=== PATIENT | female | born 1960 | race Caucasian/White ===

== ENCOUNTER 2016-08-13 07:42 | Day surgery (SDC) | payer BC ==
[~2016-08-13 07:42] MED LIST: PROPOFOL INJ 200 MG/20 ML VIAL IV ONE
[2016-08-13] MEDS ORDERED: PROPOFOL INJ 200 MG/20 ML VIAL IV ONE (08:53)
[2016-08-13 10:10] VITALS: BP 104/70
--- NOTE | 2016-08-13 13:28 | Operative Report ---
Operative Report DATE OF SURGERY: 08/13/16 Operative Report: The risks, benefits and alternatives of the procedure including risks of bleeding, perforation requiring surgery are explained to the patient detail and informed consent is obtained. Patient is taken back to the endoscopy suite. Patient is placed in a left lateral decubital position. Timeout is called. Propofol medications is administered. A rectal examination was done which did not reveal any masses, tears or fissures. An Olympus videoscope was inserted into the patient's rectum. Keeping the lumen in site at all times the scope was then gradually advanced all the way to the cecum. The cecum as identified by the usual anatomical landmarks of the ileocecal valve as well as the appendiceal office. Photodocumentation is obtained. The scope is then sequentially pulled back via the various segments of the colon including the ascending colon, hepatic flexure, transverse colon, splenic flexure, descending colon and finally into the rectosigmoid portions of the colon. Prep is good. Retroflexion maneuvers performed. PREOPERATIVE DIAGNOSIS: Colorectal cancer screening. POSTOPERATIVE DIAGNOSIS: Colon polyp times through this removed via snare polypectomy. Occasional diverticulosis. Internal hemorrhoids. 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 OPERATION: Colonoscopy with snare polypectomy SURGEON: ANURAG CHOI ANESTHESIA: LMAC TISSUE REMOVED OR ALTERED: Both colon polyps and retrieved. COMPLICATIONS: None. ESTIMATED BLOOD LOSS: none. INTRAOPERATIVE FINDINGS: As noted above PROCEDURE: Patient tolerated the procedure well. No immediate postprocedure complications are noted. Patient is discharged in good condition. Date of discharge 08/13/2016. Discharge diet: Regular. Discharge activity: Regular. Patient will need a surveillance colonoscopy in 3-5 years depending on the pathology of the polyp. She does have a 2-3 week follow-up to discuss findings. She is instructed to go the emergency room or call the office should there be any further problems or questions.
== END 2016-08-13 09:27 | disposition home or self-care (01) ==
LOC: END 07:42
PROVIDERS: ATTEND Internal Medicine Gastroenterology
PROC: 0DBP8ZX Excision of Rectum, Via Natural or Artificial Opening Endoscopic, Diagnostic (ICD-10-PCS; principal; 2016-08-13 08:30)
DX: Z12.11 Encounter for screening for malignant neoplasm of colon (principal); K57.30 Diverticulosis of large intestine without perforation or abscess without bleeding; K64.8 Other hemorrhoids; K62.1 Rectal polyp
CPT/HCPCS: 45385; 88305 ×2; J2704; 44388; 45388; 810

== ENCOUNTER 2019-07-28 10:42 | Emergency (ER) | payer SELFPAY ==
--- NOTE | 2019-07-28 10:51 | ER Document Report ---
ED Medical Screen (RME) - General Chief Complaint: Abscess Stated Complaint: ABSCESS Time Seen by Provider: 07/28/19 10:50 Mode of Arrival: Ambulatory Information source: Patient Notes: 59-year-old female presents emergency department with a perineal abscess. She was sent over from Dr. Parker's office. She reports it started Saturday. Dr. Parker started her on clindamycin today but she has not taken a dose. I have greeted and performed a rapid initial assessment of this patient. A comprehensive ED assessment and evaluation of the patient, analysis of test results and completion of the medical decision making process will be conducted by additional ED providers. TRAVEL OUTSIDE OF THE [place] IN LAST 30 DAYS: No - Related Data Allergies/Adverse Reactions: Penicillins Allergy (Severe, Verified 08/13/16 07:43) RASH OVER FACE Sulfa (Sulfonamide Antibiotics) Allergy (Intermediate, Verified 08/13/16 07:43) N/V VICKS 44 Allergy (Severe, Uncoded 08/13/16 07:43) LIPS FACIAL SEWLLING Past Medical History - Past Medical History Cardiac Medical History: Denies: Hx Coronary Artery Disease, Hx Heart Attack, Hx Hypertension Pulmonary Medical History: Denies: Hx Asthma, Hx Bronchitis, Hx COPD, Hx Pneumonia Neurological Medical History: Denies: Hx Cerebrovascular Accident, Hx Seizures Musculoskeltal Medical History: Denies Hx Arthritis - Immunizations Hx Diphtheria, Pertussis, Tetanus Vaccination: No Physical Exam - Vital signs Vitals: Temp Pulse Resp BP Pulse Ox 97.7 F 88 16 134/78 H 96 07/28/19 10:47 07/28/19 10:47 07/28/19 10:47 07/28/19 10:47 07/28/19 10:47 Course - Vital Signs Vital signs: Temp Pulse Resp BP Pulse Ox 97.7 F 88 16 134/78 H 96 07/28/19 10:47 07/28/19 10:47 07/28/19 10:47 07/28/19 10:47 07/28/19 10:47
[2019-07-28] MEDS ORDERED: LIDOCAINE 1%/EPINEPHRINE INJ 20 ML VIAL INJ ONE (12:10)
--- NOTE | 2019-07-28 12:14 | ER Document Report ---
ED Skin Rash/Insect Bite/Abscs - General Chief Complaint: Abscess Stated Complaint: ABSCESS Time Seen by Provider: 07/28/19 10:50 Mode of Arrival: Ambulatory Notes: 59-year-old healthy female presents to the emergency department with an abscess just lateral to her right labia externa in the crease of the groin. She was seen at Dr. Parker's office, given antibiotics, and sent over here for incision and drainage. Patient states that it started out as a small "pimple" and quickly improved. No fevers or chills, no numbness or tingling in the area. Patient states that it is acutely painful. TRAVEL OUTSIDE OF THE [place] IN LAST 30 DAYS: No - Related Data Allergies/Adverse Reactions: Penicillins Allergy (Severe, Verified 07/28/19 10:56) RASH OVER FACE Sulfa (Sulfonamide Antibiotics) Allergy (Intermediate, Verified 07/28/19 10:56) N/V VICKS 44 Allergy (Severe, Uncoded 07/28/19 10:56) LIPS FACIAL SEWLLING Home Medications: no home meds Past Medical History - General Information source: Patient - Social History Smoking Status: Current Every Day Smoker Chew tobacco use (# tins/day): No Frequency of alcohol use: None Drug Abuse: None Family History: None Patient has suicidal ideation: No Patient has homicidal ideation: No - Past Medical History Cardiac Medical History: Denies: Hx Coronary Artery Disease, Hx Heart Attack, Hx Hypertension Pulmonary Medical History: Denies: Hx Asthma, Hx Bronchitis, Hx COPD, Hx Pneumonia Neurological Medical History: Denies: Hx Cerebrovascular Accident, Hx Seizures Musculoskeletal Medical History: Denies Hx Arthritis Past Surgical History: Reports: Hx Thyroid Surgery - Immunizations Hx Diphtheria, Pertussis, Tetanus Vaccination: No Review of Systems - Review of Systems Constitutional: See HPI EENT: No symptoms reported Cardiovascular: No symptoms reported Respiratory: No symptoms reported Gastrointestinal: No symptoms reported Genitourinary: No symptoms reported Female Genitourinary: No symptoms reported Musculoskeletal: No symptoms reported Skin: See HPI Hematologic/Lymphatic: No symptoms reported Neurological/Psychological: See HPI Physical Exam - Vital signs Vitals: Temp Pulse Resp BP Pulse Ox 97.7 F 88 16 134/78 H 96 07/28/19 10:47 07/28/19 10:47 07/28/19 10:47 07/28/19 10:47 07/28/19 10:47 - Notes Notes: PHYSICAL EXAMINATION: Reviewed vital signs and charting by RN GENERAL: Alert, interacts well. No acute distress. HEAD: Normocephalic, atraumatic. EYES: Pupils equal and round. Extraocular movements intact. ENT: Oral mucosa moist, tongue midline. NECK: Full range of motion. Trachea midline. EXTREMITIES: Moves all 4 extremities spontaneously. No edema, No cyanosis. PSYCH: Normal affect, normal mood. SKIN: Warm, dry, normal turgor. There is a 2.5 x 1 cm abscess on the lateral labia externa with an area of fluctuance. Course - Re-evaluation Re-evalutation: 07/28/19 12:44 Abscess drainage performed on the right lateral labia externa. Local anesthesia with lidocaine 1% with epinephrine. A 2 cm incision was made using a #11 scalpel. Patient tolerated procedure well. Was packed with iodoform. Patient given strict return precautions and following instructions. She is stable for discharge. - Vital Signs Vital signs: Temp Pulse Resp BP Pulse Ox 97.7 F 88 16 134/78 H 96 07/28/19 10:49 07/28/19 10:47 07/28/19 10:49 07/28/19 10:47 07/28/19 10:49 Procedures - Incision and Drainage Right Lateral Labia Type: Simple Anesthetic type: 1% Lidocaine w/epi Blade size: 11 I&D procedure: Shurclens applied, Iodoform packing placed Incision Method: Incision made by scalpel Discharge - Discharge Clinical Impression: Abscess Condition: Good Disposition: HOME, SELF-CARE Additional Instructions: You were seen for an abscess that required drainage. Please clean this area with soap and water twice daily and apply a topical antibiotic. Dress the area after each cleaning. Please follow-up in 48 hours here in the emergency department or in Dr. Parker's office for removal of the iodoform and possible replacement for reexamination. Please fill the antibiotic prescription that he gave you and take it as directed. Please return if you develop fever, vomiting, the pain at the site worsens, you notice spreading redness from the area, or you have any other symptoms that are concerning to you.
[2019-07-28 12:53] VITALS: BP 129/85
== END 2019-07-28 13:00 | disposition home or self-care (01) ==
LOC: ER 10:42
DX: N76.4 Abscess of vulva (principal); F17.200 Nicotine dependence, unspecified, uncomplicated; Z88.0 Allergy status to penicillin; Z88.2 Allergy status to sulfonamides
CPT/HCPCS: 99283; 87070; 87205; 87077; 87186; 56405; A6266; J3490

== ENCOUNTER → 2020-02-09 | Outpatient (CLI) | payer BC ==
[2020-02-09 08:08] LABS: ABSOLUTE EOSINOPHILS # (AUTO) 0.1 10^3/uL (0.0-0.6); ABSOLUTE LYMPHOCYTES (AUTO) 1.4 10^3/uL (0.5-4.7); ABSOLUTE MONOCYTES (AUTO) 0.6 10^3/uL (0.1-1.4); BASOPHILS % (AUTO) 0.2 % (0-2); EOSINOPHILS % (AUTO) 1.2 % (0-6); HEMATOCRIT 41.6 % (36.0-47.0); HEMOGLOBIN 14.4 g/dL (12.0-15.5); LYMPHOCYTES % (AUTO) 26.7 % (13-45); MEAN CORPUSCULAR HEMOGLOBIN 34.8 pg (27.0-33.4); MEAN CORPUSCULAR HGB CONC 34.5 g/dL (32.0-36.0); MEAN CORPUSCULAR VOLUME 101 fl (80-97); MONOCYTES % (AUTO) 12.7 % (3-13); PLATELET COUNT 215 10^3/uL (150-450); RED BLOOD COUNT 4.13 10^6/uL (3.72-5.28); RED CELL DISTRIBUTION WIDTH 12.3 % (11.5-14.0); SEGMENTED NEUTROPHILS % (AUTO) 59.2 % (42-78); TOTAL CELLS COUNTED % (AUTO) 100 %; WHITE BLOOD COUNT 5.1 10^3/uL (4.0-10.5)
== END ==
LOC: OD 07:04
PROVIDERS: ATTEND Family Medicine Geriatric Medicine
DX: I10 Essential (primary) hypertension (principal)
CPT/HCPCS: 36415; 85025

== ENCOUNTER → 2020-03-28 | Outpatient (CLI) | payer BC ==
[2020-03-28 08:29] LABS: ABSOLUTE LYMPHOCYTES (AUTO) 1.1 10^3/uL (0.5-4.7); ABSOLUTE MONOCYTES (AUTO) 0.5 10^3/uL (0.1-1.4); ABSOLUTE NEUT (AUTO) 1.6 10^3/uL (1.7-8.2); BASOPHILS % (AUTO) 0.2 % (0-2); EOSINOPHILS % (AUTO) 1.5 % (0-6); HEMATOCRIT 40.8 % (36.0-47.0); HEMOGLOBIN 14.3 g/dL (12.0-15.5); LYMPHOCYTES % (AUTO) 33.5 % (13-45); MEAN CORPUSCULAR HEMOGLOBIN 35.1 pg (27.0-33.4); MEAN CORPUSCULAR VOLUME 100 fl (80-97); MONOCYTES % (AUTO) 14.1 % (3-13); PLATELET COUNT 183 10^3/uL (150-450); RED BLOOD COUNT 4.07 10^6/uL (3.72-5.28); RED CELL DISTRIBUTION WIDTH 12.5 % (11.5-14.0); SEGMENTED NEUTROPHILS % (AUTO) 50.7 % (42-78); TOTAL CELLS COUNTED % (AUTO) 100 %; WHITE BLOOD COUNT 3.2 10^3/uL (4.0-10.5)
[2020-03-28 09:09] LABS: ALBUMIN 4.5 g/dL (3.5-5.0); ALKALINE PHOSPHATASE 84 U/L (38-126); ANION GAP 6 (5-19); ASPARTATE AMINO TRANSFERASE 31 U/L (14-36); BILIRUBIN,DIRECT 0.4 mg/dL (0.0-0.4); BILIRUBIN,TOTAL 0.9 mg/dL (0.2-1.3); BLOOD UREA NITROGEN 15 mg/dL (7-20); CALCIUM 9.7 mg/dL (8.4-10.2); CARBON DIOXIDE 28 mmol/L (22-30); CHLORIDE 106 mmol/L (98-107); CHOLESTEROL 151.31 mg/dL (0-200); GLUCOSE 96 mg/dL (75-110); POTASSIUM 4.5 mmol/L (3.6-5.0); TOTAL PROTEIN 8.2 g/dL (6.3-8.2); TRIGLYCERIDES 91 mg/dL (<150)
[2020-03-28 09:20] LABS: DIRECT LDL 72 mg/dL (<100)
[2020-03-28 10:11] LABS: FOLATE 9.88 ng/mL (>2.76)
== END ==
LOC: OD 07:46
PROVIDERS: ATTEND Family Medicine Geriatric Medicine
DX: R71.8 Other abnormality of red blood cells (principal); E78.5 Hyperlipidemia, unspecified; Z79.899 Other long term (current) drug therapy
CPT/HCPCS: 36415; 80053; 80061; 82607; 82746; 85025